=== PATIENT | female | born 1965 | race African-American/Black ===

== ENCOUNTER 2022-02-07 13:06 | Outpatient (CLI) | payer OTHER, SELFPAY | END 2022-02-07 13:07 | disposition home or self-care (01) | LOC: ANHAUDIO 13:08 | PROVIDERS: Referring Provider Otolaryngology; Visit Provider Otolaryngology | DX: H90.5 Unspecified sensorineural hearing loss (principal) | CPT/HCPCS: 92552; 92556; 92567 ==